=== PATIENT | female | born 2000 | race Caucasian/White ===

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

== ENCOUNTER 2022-01-06 12:06 | Inpatient (IN) | payer OTHER ==
[~2022-01-06] VITALS: Ht 160 cm; Wt 82.1 kg
--- NOTE | 2022-01-06 13:53 | NUR ---
RAPID SWAB COLLECTED
--- NOTE | 2022-01-06 18:51 | PR ---
[facility] [address], [place] [address] Signed Progress Notes IP Datetime Report Generated by CPN: 01/06/2022 18:51 PROGRESS NOTES: [id number] Impression: Normal Progression of Labor; Reassuring Heart Rate Plan: Continue Present Management VITAL SIGNS: [id number] Vital Signs: Reviewed VS Notable Details: elevated BP EXAM: [id number] Dilatation: 6.5 Effacement: 80 Station: -2 Contractions: q3-5 min MEMBRANES: [id number] Membranes Status: Intact Comments: 22 yo @ 39 4/7 weeks gestation -elevated BP upon admission: PreE labs WNL, PC ratio <0.2 -spontaneous onset of labor -progressing well with expectant mgmt, most recent check 6.5cm, laboring in tub. FETUS A: [id number] FHR Baseline: 130 Variability: Marked >25bpm (Annotations: Data stored by N on behalf of user) Accelerations: 15X15 Decelerations: None FHR Category: Category I Comments on Fetus A: no evidence of acidemia FETUS B: [id number] Signing Physician: Neida Kiser DO Copies: ~ *Electronically Signed* 01/06/221850 NEIDA KISER DO PATIENT NAME: STACY BISHOP PROGRESS NOTE DATE OF : 01 PHYSICIAN: NEIDA KISER #: [id number] REPORT IS CONFIDENTIAL AND NOT TO BE RELEASED WITHOUT AUTHORIZATION
--- NOTE | 2022-01-07 00:02 | PR ---
[facility] [address] [place], [place] [address] Signed Progress Notes IP Datetime Report Generated by CPN: 01/07/2022 00:02 PROGRESS NOTES: [id number] Impression: Reassuring Heart Rate Procedures: Artificial ROM Plan: Continue Present Management VITAL SIGNS: [id number] Vital Signs: Reviewed VS Notable Details: elevated BP EXAM: [id number] Dilatation: 6.0 Effacement: 85 Station: -1 Contractions: q3-5 min MEMBRANES: [id number] Membranes Status: Ruptured ROM Note: AROM by Dr. Kiser Comments: PT is a 22 yo @ 39 4/7 weeks gestation -slow labor progression -pt initially deferring amniotomy, now agreeable -AROM performed without difficulty FETUS A: [id number] FHR Baseline: 130 Variability: Marked >25bpm (Annotations: Data stored by N on behalf of user) Accelerations: 15X15 Decelerations: None FHR Category: Category I Comments on Fetus A: no evidence of acidemia FETUS B: [id number] Signing Physician: Neida Kiser DO Copies: ~ *Electronically Signed* 01/07/22 NEIDA MONTERROSO DO PATIENT NAME: STACY BISHOP PROGRESS NOTE DATE OF : 01 PHYSICIAN: NEIDA KISER #: [id number] REPORT IS CONFIDENTIAL AND NOT TO BE RELEASED WITHOUT AUTHORIZATION
--- NOTE | 2022-01-08 06:47 | PR ---
[facility] [address] [facility] [place] [place] [address] Signed PP Progress Notes Datetime Report Generated by CPSrini: 01/08/2022 06:47 SUBJECTIVE: [id number] Pain: Within Normal Limits Nausea/Vomiting: Denies Flatus: Yes Vital Signs: [id number] Vital Signs: Reviewed; Within Normal Limits EXAM: Ongoing Cardiovascular: Normal Respiratory: Normal Abdomen/Uterus: Normal Lochia: Normal Breasts: Normal Extremities: Normal Progress: Normal Exam Comments: NAD resting in bed with baby on chest No dyspnea/ retractions RRR Abd SNTND, FFBU Ext: Trace edema IMPRESSION/PLAN/PROCEDURES: [id number] Impression: Normal Progression; Difficulties Plan: Continue Present Management; Consult; Discharge Procedures: None Progress Notes: Pt is a 22 yo PPD#1 s/p -Seen and examined, progressing well : ambulating, voiding, tolerating regular diet -Pain well-controlled with orals -Waiting for milk to come in, having nursing difficulties in the interim, recommend consult -Undecided re: contraception -Would like DC to home today if possible Signing Physician: Neida Kiser DO Copies: *Electronically Signed* 01/08/22 0647 NEIDA KISER DO PATIENT NAME: STACY BISHOP PROGRESS NOTE DATE OF : 01 PHYSICIAN: NEIDA KISER DO RPT #: [id number] REPORT IS CONFIDENTIAL AND NOT TO BE RELEASED WITHOUT AUTHORIZATION [facility] [address] [place] [address] [place], [place] [address] Signed ~ *Electronically Signed* 01/08/22 0647 NEIDA KISER DO PATIENT NAME: STACY BISHOP PROGRESS NOTE DATE OF : 01 PHYSICIAN: NEIDA KISER DO RPT #: [id number] REPORT IS CONFIDENTIAL AND NOT TO BE RELEASED WITHOUT AUTHORIZATION
== END 2022-01-08 15:40 | disposition home or self-care (01) | DRG 806 ==
LOC: FBCO 12:06 → FBC 12:30
PROVIDERS: ADMIT Obstetrics & Gynecology; ATTEND Obstetrics & Gynecology
PROC: 10E0XZZ Delivery of Products of Conception, External Approach (ICD-10-PCS; principal; 2022-01-06)
DX: O99.03 Anemia complicating the puerperium (principal); D62 Acute posthemorrhagic anemia; Z37.0 Single live birth; Z3A.39 39 weeks gestation of pregnancy; Z20.822 Contact with and (suspected) exposure to COVID-19
CPT/HCPCS: 01960; 36415; 80053; 82565; 82570; 83615; 84156; 84550; 85027; 86850; 86900; 86901; A9270; C9803; J2001; J2405; J2590; J2795; J7121; U0003